=== PATIENT | female | born 1985 | race Caucasian/White ===

== ENCOUNTER 2023-06-10 19:32 | Inpatient (IN) | payer SELFPAY ==
[2023-06-10] VITALS (75 sets, daily range): BP systolic 118–193; BP diastolic 71–112; PULSE 60–86; TEMP 36.8; O2SAT 93–99; BMI 36.6
[2023-06-10] MEDS: Labetalol (Prefilled) 20 MG/4 ML IV (19:42)
[2023-06-10] MEDS: Magnesium Sulfate 4gm/100mL 4 GM/100 ML IV.SOLN. IV (19:51)
[2023-06-10] MEDS: Lactated Ringers 1,000 ML 50 ML IV (19:53)
[2023-06-10] MEDS: Labetalol (Prefilled) 20 MG/4 ML 40 MG IV (20:00)
[2023-06-10 20:12] LABS: Bacteria 0 SEEN /hpf (None Seen); Mucous, Urine 0 SEEN /hpf (<or=2+); Red Blood Cells-Urine 0 SEEN /hpf (0-5); Squamous Epithelial Cells - UA 0 SEEN /hpf (5-10)
[2023-06-10 20:15] LABS: Absolute Lymphocyte Count 2.46 X10^3/uL (0.83-4.51); Absolute Neutrophil Count 5.4 X10^3/uL (2.0-7.7); Basophil# 0.04 X10^3/uL; Basophil% 0.4 % (0-1); Eosinophil# 0.07 X10^3/uL; Eosinophils% 0.8 % (0-5); Hematocrit 35.3 % (37-47); Hemoglobin 11.7 g/dL (12.0-15.0); Lymphocyte # 2.46 X10^3/ul (0.83-4.51); Lymphocyte % 27.6 % (19-41); Mean Corp Hgb Conc 33.1 g/dL (32-36); Mean Corpuscular Hgb 29.5 pg (27.0-32.0); Mean Corpuscular Volume 89.1 fL (81-99); Monocyte# 0.77 X10^3/uL; Monocyte% 8.7 % (0-10); NRBC Flagged by Analyzer 0 % (0-5); Neutrophil # 5.44 X10^3/uL (2.7-7.7); Neutrophil % 61.2 % (47-70); Platelet Count 242 K/mm3 (150-450); RBC Distribution Width CV 13.6 % (11.6-14.6); RBC Distribution Width SD 44.4 fl (35.1-43.9); Red Blood Count 3.96 M/mm3 (4.2-5.4); White Blood Count 8.9 K/mm3 (4.4-11.0)
[2023-06-10] MEDS: Labetalol 100 MG/20 ML Vial 80 MG IV (20:15)
[2023-06-10] MEDS: Magnesium Sulfate 4gm/100mL 2 GM/50 ML IV.SOLN. IV (20:15)
[2023-06-10 20:18] LABS: POSITIVE COUNT NO; POSITIVE DIFFERENTIAL NO; POSITIVE MORPHOLOGY NO
[2023-06-10 20:20] LABS: Color, Urine Yellow (Yellow); Glucose, Dipstick Normal (Normal); Ketone-Dipstick Negative (Negative); Leukocyte Esterase-Dipstick Negative /ul (Negative); Nitrite-Dipstick Negative (Negative); Occult Blood-Urine 10 /ul (Negative); Protein-Dipstick 500 mg/dl (Negative); Urine Bilirubin Dipstick Negative (Negative); Urine Clarity Clear (Clear); Urine Urobilinogen Normal (Normal); Urine pH 6.5 (5.0 - 8.0)
[2023-06-10 20:27] LABS: White Blood Cells 0-5 SEEN /hpf (0-5)
[2023-06-10 20:28] LABS: Amphetamine Urine VISTA NEGATIVE (<1000 ng/mL); Barbiturate Urine VISTA NEGATIVE (< 200 ng/mL); Benzodiazepine Urine VISTA NEGATIVE (< 200 ng/mL); Cocaine Urine VISTA NEGATIVE (< 300 ng/mL); Ecstacy Urine VISTA NEGATIVE (< 500 ng/mL); Methadone Urine VISTA NEGATIVE (< 300 ng/mL); PCP Urine VISTA NEGATIVE (< 25 ng/mL); THC Urine VISTA NEGATIVE (< 50 ng/mL); Vista UDS pH Range 6
[2023-06-10 20:29] LABS: ALB/GLOB Ratio 0.6 RATIO (0.9-2.4); AST(SGOT) 19 U/L (15-37); Alanine Aminotransfer ALT/SGPT 18 U/L (13-56); Albumin, Serum 2.5 g/dL (3.2-5.0); Alkaline Phosphatase 137 U/L (45-117); Anion Gap 9 (5-15); BUN 11 mg/dL (7-18); BUN/Creat Ratio 16.9 RATIO (10-20); Calcium,Total 9.3 mg/dL (8.5-10.1); Chloride 100 mmol/L (98-107); Creatinine, Serum 0.65 mg/dL (0.55-1.02); EST Glomerular Filtration Rate 108 mL/min (>60); Est Glom Filt Rate - Afr Amer 131 mL/min (>60); Glucose 84 mg/dL (74-106); Potassium 4.1 mmol/L (3.5-5.1); Protein, Total 6.5 g/dL (6.4-8.2); Sodium Level 130 mmol/L (136-145)
[2023-06-10 20:30] LABS: Protein, Urine (Random) 236.3 mg/dL (<11.9); Protein:Creat Ratio 12180 mg/g CRE (0-200)
[2023-06-10] MEDS: Magnesium Sulfate 20 GM/500 ML BAG IV (20:33)
[2023-06-10 20:55] LABS: Rubella IgG Non-Reactive (Nonreactive); Syphilis Antibodies Non-reactive
--- NOTE | 2023-06-10 20:56 | HP.PCM.OB_ITS ---
History and Physical Date of Admission: 06/10/23 HPI: 38-year-old at 38/6 weeks, JULIA 06/18/2023 by LMP, admitted for preeclampsia with severe features. Patient had routine labor and delivery appointment today and was found to have elevated blood pressures in the right range. These were persistent upon arrival to labor and delivery this evening. Patient denies any headache or vision changes, chest pain or shortness of breath, nausea or vomiting, right upper quadrant pain. Denies regular contractions, leaking fluid, vaginal bleeding. Patient reports movement. Patient has received lay midwifery care with Phyllis Moya. She has had no labs, no ultrasound, no GBS swab. 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 Had a little extra bleeding after her first 2 deliveries. States that all pregnancies went post te rm. She had 2 miscarriages and is unsure of the order, but believes at least 1 was prior to her last vaginal delivery. She has had all home deliveries. Medical history: Denies Surgical history: Denies Medications: Reports vitamin use Allergies: No known drug allergies Family history: Denies history of blood clots or bleeding disorders. Social history: Denies tobacco, alcohol, drug use Review of system: Negative otherwise stated above Physical exam: Vitals: BP 157/84, O2 saturation 95% on room air General: Patient is in no acute distress HEENT: Normal cephalic/atraumatic, PERRLA Cardiorespiratory: No increased effort Abdomen: Soft, gravid, no right upper quadrant pain Extremities: Minimal edema Neurologic: Cranial nerves II through XII grossly intact, patellar reflexes 2/4 bilaterally Musculoskeletal: Moves all extremities equally Cervical exam: Pending Bedside ultrasound: cephalic. Femur length measuring 41 weeks approximately. heart rate:145/mod coleman/+accel/no decel Crumpler: occasional Assessment/plan: 38-year-old at 38/6 weeks, JULIA 06/18/2023 by LMP, admitted for preeclampsia with severe features. complicated by: Preeclampsia with severe features, grand multiparity, advanced maternal age. ?Admit to labor and delivery ? Preeclampsia labs done. Creatinine and LFTs are within normal limits. Patient does have proteinuria. CBC within normal limits. labs are pending. ? Patient received labetalol IV 20 mg and 40 mg. She will be started on 200 mg p.o. labetalol every 12 hours . ?Magnesium sulfate 6 g bolus then 2 g/h. To continue throughout labor and for 24 hours . We will get magnesium level in 6 hours ? Reviewed preeclampsia with severe features and management with patient and her spouse. Discussed magnesium sulfate and recommendations regarding this for seizure prophylaxis. Reviewed recommendations for induction of labor. ?Reviewed group beta strep. Discussed that this is a normal bacteria that is found in the vaginal and rectal areas of about 30% of women. Discussed that it is recommended for screening routinely at approximately 36-37 weeks. Reviewed that if patient is positive for GBS unknown recommendations for GBS swab and treatment. Discuss that during labor and delivery baby is exposed to group beta strep. Reviewed risk to baby including, but not limited to: Intensive care unit admission, sepsis, meningitis, pneumonia. Patient understands and agrees to group beta strep swab, however declines penicillin at this time. Patient is aware of pediatric monitoring. ?Reviewed recommendations of admission for at minimum 3 days for monitoring of blood pressures. Plan of care reviewed with patient, spouse, support person, bedside RN. All questions answered.
[2023-06-10 21:09] LABS: HIV - WCH Non-Reactive (Nonreactive); Hepatitis B Surface Antigen Non-Reactive (Nonreactive); Hepatitis C Antibody Non-Reactive (Nonreactive)
[2023-06-10] MEDS: Labetalol 200 MG Tablet PO (21:47)
[2023-06-10] MEDS: Oxytocin 15 Units/NS 250ml 15 UNITS/250 ML IV.SOLN 2 UNITS IV (22:41)
[2023-06-10 23:08] LABS: Group B Strep DNA By PCR Negative (Negative); Internal Control PASS; Probe Check PASS; Specimen Processing Control PASS
[2023-06-11] VITALS (125 sets, daily range): BP systolic 98–155; BP diastolic 55–95; PULSE 71–98; RESP 16–18; TEMP 35.9–36.8; O2SAT 93–100
[2023-06-11] MEDS: Acetaminophen 500 MG Tablet PO (01:29)
[2023-06-11 03:42] LABS: Magnesium 5.9 mg/dL (1.6-2.6)
--- NOTE | 2023-06-11 06:17 | EX.PCM.OBRPT ---
Maternal Data Information Final JULIA: 06/18/23 Final JLUIA Source: LMP Vaginal Delivery Operative Information Date of Procedure: 06/11/23 Pre-Operative Diagnosis: Mcgovern intrauterine , preeclampsia with severe features Post-Operative Diagnosis: Mcgovern intrauterine , preeclampsia with severe features Surgery / Procedure Performed: Spontaneous Vaginal Delivery Type of Anesthesia: None Estimated Blood Loss: 300cc Findings Description of Procedure: Precipitous delivery. Spontaneous vaginal delivery of viable infant. Nuchal cord x1, loose, reduced, cord around body as well, delivered through. Spontaneous delivery of placenta. No lacerations. 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 See their documentation for details. A Gender: Female (1 minute): 8 (5 minute): 8 Complication Complications: None
[2023-06-11] MEDS: Oxytocin 15 Units/NS 250ml 15 UNITS/250 ML IV.SOLN 83 UNITS IV (06:25)
[2023-06-11] MEDS: Magnesium Sulfate 20 GM/500 ML BAG IV ×2 (06:58→15:55)
[2023-06-11] MEDS: Labetalol 200 MG Tablet PO ×2 (10:04→22:08)
[2023-06-11 10:23] LABS: Magnesium 6.4 mg/dL (1.6-2.6)
[2023-06-11] MEDS: Acetaminophen 500 MG Tablet 1000 MG PO (14:18)
[2023-06-11] MEDS: Lactated Ringers 1,000 ML 50 ML IV (15:35)
[2023-06-11] MEDS: 0.9% Saline Lock 10 ML Syringe IV (16:12)
[2023-06-11 18:56] LABS: Magnesium 6.8 mg/dL (1.6-2.6)
[2023-06-11 23:48] LABS: Magnesium 6.2 mg/dL (1.6-2.6)
[2023-06-12] VITALS (20 sets, daily range): BP systolic 101–147; BP diastolic 54–76; PULSE 65–97; RESP 15–18; TEMP 36.1–36.7; O2SAT 95–99
[2023-06-12] MEDS: Magnesium Sulfate 20 GM/500 ML BAG IV (01:27)
[2023-06-12 08:02] LABS: Absolute Lymphocyte Count 2.28 X10^3/uL (0.83-4.51); Absolute Neutrophil Count 5.6 X10^3/uL (2.0-7.7); Basophil# 0.04 X10^3/uL; Basophil% 0.5 % (0-1); Eosinophil# 0.08 X10^3/uL; Eosinophils% 0.9 % (0-5); Hemoglobin 8.4 g/dL (12.0-15.0); Lymphocyte # 2.28 X10^3/ul (0.83-4.51); Lymphocyte % 25.9 % (19-41); Mean Corp Hgb Conc 32.3 g/dL (32-36); Mean Corpuscular Hgb 29.5 pg (27.0-32.0); Mean Corpuscular Volume 91.2 fL (81-99); Mean Platelet Vol. 10.7 fl (6.2-12.0); Monocyte# 0.72 X10^3/uL; Monocyte% 8.2 % (0-10); NRBC Flagged by Analyzer 0 % (0-5); Neutrophil # 5.63 X10^3/uL (2.7-7.7); Neutrophil % 63.7 % (47-70); Platelet Count 203 K/mm3 (150-450); RBC Distribution Width CV 14.5 % (11.6-14.6); RBC Distribution Width SD 48.2 fl (35.1-43.9); Red Blood Count 2.85 M/mm3 (4.2-5.4); White Blood Count 8.8 K/mm3 (4.4-11.0)
--- NOTE | 2023-06-12 08:08 | PCM.PN.OB ---
Subjective Subjective Patient feeling well. No headaches or vision changes, chest pain or shortness of breath, nausea or vomiting, right upper quadrant pain. Objective Data Objective Data Vital Signs: Vital Signs Temp Pulse Resp BP Pulse Ox O2 Del Method 98.1 F 65 16 116/56 L 96 Room Air 06/12/23 05:00 06/12/23 07:43 06/12/23 05:00 06/12/23 07:43 06/12/23 07:42 06/12/23 05:00 Oxygen Delivery Method Room Air Weight: 91 kg Body Mass Index (BMI) 36.6 Intake & Output: Intake and Output for Last 24 Hours 06/10/23 06/11/23 06/12/23 23:59 23:59 23:59 Intake Total 201.17 / 204.10 3291.23 / 3341.23 1737.51 / 1737.51 Output Total 1100 / 1100 5700 / 5700 1000 / 1000 Balance -898.83 / -895.90 -2408.77 / -2358.77 737.51 / 737.51 Lab / Micro Data Attestation: I reviewed the patient's lab results. 06/12/23 07:50 06/10/23 19:40 Labs: Laboratory Results - last 24 hr 06/11/23 09:45: Magnesium 6.4 H* 06/11/23 17:11: Magnesium 6.8 H* 06/11/23 23:15: Magnesium 6.2 H* 06/12/23 07:50: WBC 8.8, RBC 2.85 L, Hgb 8.4 L, Hct 26.0 L, MCV 91.2, MCH 29.5, MCHC 32.3, RDW Std Deviation 48.2 H, RDW Coeff of Tru 14.5, Plt Count 203, MPV 10.7, Immature Gran % (Auto) 0.800, Neut % (Auto) 63.7, Lymph % (Auto) 25.9, [place] % (Auto) 8.2, Eos % (Auto) 0.9, Baso % (Auto) 0.5, Absolute Neuts (auto) 5.6, Absolute Lymphs (auto) 2.28, Nucleated RBC % 0 Micro: Microbiology 06/10/23 19:40 Genital vaginal Chlamydia trachomatis (PCR) - Final 08/01/23 19:40 Genital vaginal Neisseria gonorrhoeae (PCR) - Final Physical Exam Const alert, oriented x3 and no apparent distress HEENT normocephalic Head and Scalp: atraumatic Neck full ROM Resp normal respiratory effort Cardio regular rate GI normal to inspection, nondistended, normoactive bowel sounds GI Narrative: Uterus 2 cm below umbilicus Back/Spine normal ROM Extremity normal to inspection Extremity Narrative: Minimal pedal edema Neuro no focal motor deficits and no sensory deficits noted Psych mental status grossly normal and affect normal Assessment & Plan (1) Severe pre-eclampsia: PLAN: day 1 status post . Complicated by severe preeclampsia now status post mag. Patient was continued on 200 mg labetalol every 12 hours, blood pressures well controlled. Asymptomatic. Labs are pending. Acute on chronic anemia secondary to delivery, iron supplement on home-going. Reviewed risks of elevating blood pressure (including but not limited to: Stroke, heart attack, PRES syndrome, seizure), and blood pressures increasing around day 3 and 7, need for good follow-up with blood pressure monitoring. Patient understands. Consider discharge home tomorrow if blood pressures are well controlled and labs are within normal limits. (2) Vaginal delivery:
[2023-06-12 08:30] LABS: ALB/GLOB Ratio 0.6 RATIO (0.9-2.4); AST(SGOT) 13 U/L (15-37); Alanine Aminotransfer ALT/SGPT 16 U/L (13-56); Alkaline Phosphatase 86 U/L (45-117); Anion Gap 5 (5-15); BUN 17 mg/dL (7-18); Calcium,Total 6.7 mg/dL (8.5-10.1); Chloride 105 mmol/L (98-107); Creatinine, Serum 0.74 mg/dL (0.55-1.02); EST Glomerular Filtration Rate 93 mL/min (>60); Est Glom Filt Rate - Afr Amer 113 mL/min (>60); Estimated Creatinine Clearance 81.53 ml/min; Globulin 3.3 g/dL (2.2-4.2); Glucose 91 mg/dL (74-106); Potassium 4.3 mmol/L (3.5-5.1); Protein, Total 5.3 g/dL (6.4-8.2); Sodium Level 136 mmol/L (136-145)
[2023-06-12] MEDS: Labetalol 200 MG Tablet PO (10:28)
[2023-06-12] MEDS: Labetalol 200 MG Tablet 400 MG PO (21:28)
[2023-06-13] VITALS (24 sets, daily range): BP systolic 121–198; BP diastolic 69–104; PULSE 70–97; RESP 14–17; TEMP 36.3–37.2; O2SAT 96–98
--- NOTE | 2023-06-13 02:24 | PCM.PN.OB ---
Subjective Subjective No morning complaints. Denies headache, vision change, chest pain, shortness of breath, nausea vomit, no quadrant pain. Objective Data Objective Data Vital Signs: Vital Signs Temp Pulse Resp BP Pulse Ox O2 Del Method 97.3 F L 79 15 124/69 H 97 Room Air 06/12/23 20:00 06/13/23 02:04 06/12/23 20:00 06/13/23 02:04 06/12/23 20:00 06/12/23 20:00 Oxygen Delivery Method Room Air Weight: 200 lb 9.93 oz Body Mass Index (BMI) 36.6 Intake & Output: Intake and Output for Last 24 Hours 06/11/23 06/12/23 06/13/23 23:59 23:59 23:59 Intake Total 3291.23 / 3341.23 1737.51 / 1737.51 Output Total 5700 / 5700 1000 / 1000 Balance -2408.77 / -2358.77 737.51 / 737.51 Lab / Micro Data 06/12/23 07:50 06/12/23 07:50 Labs: Laboratory Results - last 24 hr 06/12/23 07:50: WBC 8.8, RBC 2.85 L, Hgb 8.4 L, Hct 26.0 L, MCV 91.2, MCH 29.5, MCHC 32.3, RDW Std Deviation 48.2 H, RDW Coeff of Tru 14.5, Plt Count 203, MPV 10.7, Immature Gran % (Auto) 0.800, Neut % (Auto) 63.7, Lymph % (Auto) 25.9, [place] % (Auto) 8.2, Eos % (Auto) 0.9, Baso % (Auto) 0.5, Absolute Neuts (auto) 5.6, Absolute Lymphs (auto) 2.28, Nucleated RBC % 0, Sodium 136, Potassium 4.3, Chloride 105, Carbon Dioxide 26.0, Anion Gap 5, BUN 17, Creatinine 0.74, Estim Creat Clear Calc 81.53, Est GFR (MDRD) Af Amer 113, Est GFR (MDRD) Non-Af 93, BUN/Creatinine Ratio 23.0 H, Glucose 91, Calcium 6.7 L, Total Bilirubin 0.20, AST 13 L, ALT 16, Alkaline Phosphatase 86, Total Protein 5.3 L, Albumin 2.0 L, Globulin 3.3, Albumin/Globulin Ratio 0.6 L Micro: Microbiology 06/10/23 19:40 Genital vaginal Chlamydia trachomatis (PCR) - Final 06/10/23 19:40 Genital vaginal Neisseria gonorrhoeae (PCR) - Final Physical Exam Const alert, oriented x3, no apparent distress, average body habitus, healthy appearing and well nourished HEENT normocephalic and moist oral mucous membranes Eyes PERRL Neck full ROM Resp normal respiratory effort, no retractions and no use of accessory muscles GI GI Narrative: Soft, nontender, uterus firm below umbilicus Extremity normal to inspection, full ROM and no clubbing, cyanosis or edema Neuro moves all extremities and no focal motor deficits Psych mental status grossly normal, affect normal, speech normal and activity/motor behavior normal Assessment & Plan (1) Vaginal delivery: PLAN: day 2. Breast-feeding. Pain well controlled. Preeclampsia with severe features based on severe range blood pressures status post magnesium. Currently on labetalol 40 mg twice daily. Asymptomatic, hellp labs today we will continue to monitor blood pressures. Pending results will discharge home today
--- NOTE | 2023-06-13 02:26 | DS.PCM_ITS ---
Discharge Summary Date of Admission: 06/10/23 Date of Discharge: 06/13/23 Summary: Patient arrived from [facility] on 06/10/2023 with severe range blood pressures diagnosed subsequently with preeclampsia with severe features and proceeded with induction of labor. Subsequently delivered vaginally on 06/11/2023. Continue magnesium for 24 hours. Patient started on labetalol and adjusted accordingly to stabilize blood pressures. Patient desired discharge home on day 2. Discharged home on 06/13/2023 Meaningful Use Info Meaningful Use Diagnoses (Choose all that apply): None applicable Discharge Plan Admission Admit Date/Time: 06/10/23 19:32 Primary Reason for Your Visit: Elevated blood pressures Attending Provider: Luna Moya Primary Care Provider: Angelina Godfrey Primary Instructions Additional Instructions / Restrictions: Regular diet. Weightbearing as tolerated. Okay to shower. No intercourse for 6 to 8 weeks. Call if fevers, chills, chest pain, shortness of breath, headache, visual changes, right upper quadrant pain. Follow-up in 3 to 5 days for blood pressure check Discharge Orders/Prescriptions Referrals / Follow Up: Care Physician,Angelina Primary [Primary Care Provider] - Disposition Disposition (needs filled in before D/C Order can be placed): Home, Self Care
[2023-06-13 06:19] LABS: Absolute Neutrophil Count 5.9 X10^3/uL (2.0-7.7); Basophil# 0.02 X10^3/uL; Basophil% 0.2 % (0-1); Eosinophil# 0.12 X10^3/uL; Eosinophils% 1.4 % (0-5); Hematocrit 28.9 % (37-47); Hemoglobin 9.2 g/dL (12.0-15.0); Lymphocyte % 23.7 % (19-41); Mean Corp Hgb Conc 31.8 g/dL (32-36); Mean Corpuscular Hgb 29.9 pg (27.0-32.0); Mean Corpuscular Volume 93.8 fL (81-99); Mean Platelet Vol. 10.6 fl (6.2-12.0); Monocyte# 0.62 X10^3/uL; NRBC Flagged by Analyzer 0 % (0-5); Neutrophil # 5.88 X10^3/uL (2.7-7.7); Neutrophil % 66.5 % (47-70); Platelet Count 228 K/mm3 (150-450); RBC Distribution Width CV 14.7 % (11.6-14.6); RBC Distribution Width SD 50.2 fl (35.1-43.9); Red Blood Count 3.08 M/mm3 (4.2-5.4); White Blood Count 8.9 K/mm3 (4.4-11.0)
[2023-06-13 07:06] LABS: ALB/GLOB Ratio 0.5 RATIO (0.9-2.4); AST(SGOT) 17 U/L (15-37); Alanine Aminotransfer ALT/SGPT 19 U/L (13-56); Albumin, Serum 2.1 g/dL (3.2-5.0); Alkaline Phosphatase 88 U/L (45-117); Anion Gap 4 (5-15); BUN 12 mg/dL (7-18); Calcium,Total 8.1 mg/dL (8.5-10.1); Chloride 108 mmol/L (98-107); Creatinine, Serum 0.63 mg/dL (0.55-1.02); EST Glomerular Filtration Rate 112 mL/min (>60); Est Glom Filt Rate - Afr Amer 135 mL/min (>60); Estimated Creatinine Clearance 95.76 ml/min; Globulin 3.9 g/dL (2.2-4.2); Glucose 85 mg/dL (74-106); LDH 217 U/L (84-246); Potassium 4.6 mmol/L (3.5-5.1); Sodium Level 136 mmol/L (136-145)
[2023-06-13] MEDS: Labetalol 200 MG Tablet 600 MG PO ×2 (08:09→20:10)
[2023-06-13] MEDS: NIFEdipine 30 MG Tablet PO (15:22)
[2023-06-14] VITALS (9 sets, daily range): BP systolic 127–153; BP diastolic 77–89; PULSE 78–89; RESP 16–17; TEMP 37; O2SAT 97
[2023-06-14] MEDS: Labetalol 200 MG Tablet 600 MG PO (08:11)
--- NOTE | 2023-06-14 10:18 | PCM.PN.OB ---
Subjective Subjective Feeling well. Lochia minimal. Denies headache or vision changes, chest pain or shortness of breath, nausea or vomiting, right upper quadrant pain. Objective Data Objective Data Vital Signs: Vital Signs Temp Pulse Resp BP Pulse Ox O2 Del Method 98.6 F 84 16 130/77 H 97 Room Air 06/14/23 08:04 06/14/23 09:24 06/14/23 08:04 06/14/23 09:25 06/14/23 08:05 06/14/23 08:04 Oxygen Delivery Method Room Air Weight: 91 kg Body Mass Index (BMI) 36.6 Intake & Output: Intake and Output for Last 24 Hours 06/12/23 06/13/23 06/14/23 23:59 23:59 23:59 Intake Total 1737.51 / 1737.51 Output Total 1000 / 1000 Balance 737.51 / 737.51 Lab / Micro Data Attestation: I reviewed the patient's lab results. 06/13/23 06:05 06/13/23 06:05 Micro: Microbiology 06/10/23 Unknown Genital vaginal Group B Streptococcus Culture - Final Group B Beta Streptococcus is not isolated. 06/10/23 19:40 Genital vaginal Chlamydia trachomatis (PCR) - Final 06/10/23 19:40 Genital vaginal Neisseria gonorrhoeae (PCR) - Final Physical Exam Const alert, oriented x3 and no apparent distress HEENT normocephalic Head and Scalp: atraumatic Neck full ROM Resp normal respiratory effort Cardio regular rate GI normal to inspection, nondistended, normoactive bowel sounds GI Narrative: Uterus 2 cm below umbilicus Back/Spine normal ROM Extremity normal to inspection Extremity Narrative: Minimal pedal edema Neuro no focal motor deficits and no sensory deficits noted Psych mental status grossly normal and affect normal Assessment & Plan (1) Severe pre-eclampsia: (2) Vaginal delivery: PLAN: day 3. Breast-feeding. Pain well controlled. Preeclampsia with severe features based on severe range blood pressures status post magnesium. Patient's blood pressure is now well controlled on labetalol 600 mg every 12 hours and Procardia XL 30 mg daily. Asymptomatic. Exam within normal limits. Labs are stable. Discharge home with precautions. Patient to call for headache or vision changes, chest pain or shortness of breath, right upper quadrant pain, general malaise, blood pressures greater than 160/110. Recommend follow-up this week in office for blood pressure check. Patient reports that she has a blood pressure cuff available at home. Declines prescription at this time. Aware of risks of untreated severe hypertension including stroke, heart attack, cardiac arrest, seizure, . Discussed that she is at risk for severe preeclampsia in subsequent pregnancies. Discussed recommendations of 81 mg aspirin daily and next . Discharge home today.
--- NOTE | 2023-06-14 10:21 | DCINST_ITS ---
Discharge Instructions Diet Discharge Diet: No restrictions Activity Discharge Activity: Return to Normal Activity and May Shower May resume sexual activity in: 4-6 weeks Weight Bearing Status: Weight bearing as tolerated Lifting Restrictions: No greater than 25 pounds Dressing / Incision Call your doctor if you observe: Fever of 101 or Higher, Change in Color, Inability to urinate, Using more than 1 pad per hour, Shortness of breath, Dizziness, Swelling in the ankles, Chest pain and Calf discomfort Follow Up Care Please Follow Up With: Luna Moya DO When: Blood pressure check in office this week and 6 week visit. Test Results: Test results from this visit will be discussed in further detail at your follow- up appointment, if applicable. Discharge Plan Admission Admit Date/Time: 06/10/23 19:32 Primary Reason for Your Visit: Elevated blood pressures, vaginal delivery, severe pre-eclampsia Attending Provider: Luna Moya Primary Care Provider: Angelina Godfrey Primary Instructions Additional Instructions / Restrictions: Regular diet. Weightbearing as tolerated. Okay to shower. No intercourse for 6 to 8 weeks. Call if fevers, chills, chest pain, shortness of breath, headache, visual changes, right upper quadrant pain. Follow-up in 3 to 5 days for blood pressure check Discharge Orders/Prescriptions Prescriptions: New labetalol 300 mg tablet 600 mg PO BID 30 Days Qty: 120 1RF nifedipine [Procardia XL] 30 mg tablet extended release 24hr 30 mg PO DAILY Qty: 30 1RF Referrals / Follow Up: Care Physician,Angelina Primary [Primary Care Provider] - Disposition Disposition (needs filled in before D/C Order can be placed): Home, Self Care
== END 2023-06-14 13:30 | disposition home or self-care (01) | DRG 807 ==
LOC: WPOUT 19:34 → WP 19:34
PROVIDERS: Obstetrics & Gynecology; Admitting Provider Student in an Organized Health Care Education/Training Program; Referring Provider Student in an Organized Health Care Education/Training Program; Visit Provider Student in an Organized Health Care Education/Training Program
DX: O14.14 Severe pre-eclampsia complicating childbirth (principal); Z37.0 Single live birth; O12.14 Gestational proteinuria, complicating childbirth; O62.3 Precipitate labor; O69.81X0 Labor and delivery complicated by cord around neck, without compression, not applicable or unspecified; O77.0 Labor and delivery complicated by meconium in amniotic fluid; Z3A.38 38 weeks gestation of pregnancy
CPT/HCPCS: 59025; 59050; 76815; 80053; 80307; 81001; 82570; 83615; 83735; 84156; 85025; 86703; 86762; 86780; 86803; 86850; 86900; 86901; 87081; 87340; 87491; 87591; 87653; 99221; J7120; A4216; G0378